=== PATIENT | female | born 1995 | race Caucasian/White ===

== ENCOUNTER 2019-11-27 01:52 | Inpatient (IN) | payer OTHER ==
[~2019-11-27] VITALS: Ht 160 cm; Wt 89.0 kg
[~2019-11-27 01:52] MED LIST: BACTRIM DS TAB1 EACH PO; TYLENOL WITH C1 EACH PO
--- NOTE | 2019-11-27 13:07 | PR ---
[facility] [address] [place] [address] Signed Progress Notes IP Datetime Report Generated by VINAY: 11/27/2019 13:07 PROGRESS NOTES: [id number] Impression: Slow Progression of Labor Procedures: Intrauterine Pressure Catheter; Scalp Electrode Plan: Augmentation Informed Consent Obtain: Vaginal Delivery; Risks, Benefits and Alternatives Discussed VITAL SIGNS: [id number] Vital Signs: Reviewed; Within Normal Limits EXAM: [id number] Dilatation: 3.5 Effacement: 90 Station: -2 Uterine Contractions: q 1 to 7 min MEMBRANES: [id number] Membrane Status: Intact Comments: Really no progress. Will begin pit augment as contractions are inadequate at this time and no cervical change. Fetus A: [id number] FHR Baseline: 140 Variability: Moderate 6-25bpm Accelerations: 15X15 Decelerations: None FHR Category: Category I Presentation: Vertex Comments on Fetus A: No evidence of metabolic acidosis Fetus B: [id number] Signing Physician: Kristin Cueto MD Copies: ~ *Electronically Signed* 11/27/19 1307 KRISTIN CUETO MD PATIENT NAME: ANTHONY RIVERA PROGRESS NOTE DATE OF : [birth year] PHYSICIAN: KRISTIN CUETO MD RPT #: [id number] REPORT IS CONFIDENTIAL AND NOT TO BE RELEASED WITHOUT AUTHORIZATION
--- NOTE | 2019-11-27 17:35 | PR ---
[facility] [address] [facility] [place], [place] [address] Signed Progress Notes IP Datetime Report Generated by VINAY: 11/27/2019 17:34 PROGRESS NOTES: [id number] Impression: Slow Progression of Labor Procedures: Sterile Vag Exam Plan: Augmentation Other Plans: restart pit Informed Consent Obtain: Vaginal Delivery; Risks, Benefits and Alternatives Discussed VITAL SIGNS: [id number] Vital Signs: Reviewed; Within Normal Limits EXAM: [id number] Dilatation: 7.0 Effacement: 90 Station: -2 Uterine Contractions: q 3 to 6 min MEMBRANES: [id number] Membrane Status: Intact Comments: Progressing slowly. status is improved currently so I feel restarting low dose pitocin is reasonable. Will continue close observation. Fetus A: [id number] FHR Baseline: 140 Variability: Moderate 6-25bpm Accelerations: 15X15 Decelerations: Early; Late FHR Category: Category II Presentation: Vertex Comments on Fetus A: overall reassuring with accels Fetus B: [id number] Signing Physician: Kristin Cueto MD Copies: ~ *Electronically Signed* 11/27/19 1734 KRISTIN CUETO MD PATIENT NAME: ANTHONY RIVERA PROGRESS NOTE DATE OF : 97 PHYSICIAN: KRISTIN CUETO MD RPT #: [id number] REPORT IS CONFIDENTIAL AND NOT TO BE RELEASED WITHOUT AUTHORIZATION
--- NOTE | 2019-11-27 18:33 | PR ---
[facility] [address] [place], [place] [address] Signed Progress Notes IP Datetime Report Generated by VINAY: 11/27/2019 18:33 PROGRESS NOTES: [id number] Impression: Normal progression of labor; Non-reassuring heart rate Procedures: Sterile Vag Exam Plan: Anesthesia consult Other Plans: stop pit, redose epidural Informed Consent Obtain: Vaginal Delivery; Risks, Benefits and Alternatives Discussed VITAL SIGNS: [id number] Vital Signs: Reviewed; Within Normal Limits EXAM: [id number] Dilatation: 8.0 Effacement: 80 Station: -2 Uterine Contractions: q 2 to 5 min MEMBRANES: [id number] Membrane Status: Intact Comments: Slowly progressing but with recurrent decels. Will stop pit augmentation again and allow for recovery but restarting. Pt updated about concerns of tolerance for contractions. Fetus A: [id number] FHR Baseline: 140 Variability: Minimal - Undetectable to <5bpm Accelerations: 15X15 Decelerations: Late FHR Category: Category II Presentation: Vertex Comments on Fetus A: Recent lates with contractions but accel with exam which is reassuring Fetus B: [id number] Signing Physician: Kristin Cueto MD Copies: ~ *Electronically Signed* 11/27/19 1833 KRISTIN CUETO MD PATIENT NAME: ANTHONY RIVERA PROGRESS NOTE DATE OF : 97 PHYSICIAN: KRISTIN CUETO MD RPT #: [id number] REPORT IS CONFIDENTIAL AND NOT TO BE RELEASED WITHOUT AUTHORIZATION
--- NOTE | 2019-11-27 19:14 | PR ---
[facility] [address] [facility] [place], [place] [address] Signed Progress Notes IP Datetime Report Generated by VINAY: 11/27/2019 19:13 PROGRESS NOTES: [id number] Impression: Non-reassuring heart rate Procedures: Sterile Vag Exam Plan: Anesthesia consult Other Plans: pit off, position changes Informed Consent Obtain: Vaginal Delivery; Risks, Benefits and Alternatives Discussed VITAL SIGNS: [id number] Vital Signs: Reviewed; Within Normal Limits EXAM: [id number] Dilatation: 8.0 Effacement: 80 Station: -2 Uterine Contractions: q 2 to 5 min MEMBRANES: [id number] Membrane Status: Intact Comments: Recurrent decels and poor variability which is currently improved. Will restart pitocin to see if baby will tolerate contractions. She is comfortable again after a redose in epidural. Will continue close observation. Fetus A: [id number] FHR Baseline: 140 Variability: Moderate 6-25bpm Accelerations: 10X10 Decelerations: Late FHR Category: Category II Presentation: Vertex Comments on Fetus A: recurrent variables _ poor variability which responded to position changes and D/C pit Fetus B: [id number] Signing Physician: Kristin Cueto MD Copies: ~ *Electronically Signed* 11/27/191912 KRISTIN CUETO MD PATIENT NAME: ANTHONY RIVERA PROGRESS NOTE DATE OF : 97 PHYSICIAN: KRISTIN CUETO MD RPT #: [id number] REPORT IS CONFIDENTIAL AND NOT TO BE RELEASED WITHOUT AUTHORIZATION
--- NOTE | 2019-11-27 20:07 | PR ---
[facility] [address] [facility] [place], [place] [address] Signed Progress Notes IP Datetime Report Generated by VINAY: 11/27/2019 20:07 PROGRESS NOTES: [id number] Impression: Normal progression of labor Procedures: Sterile Vag Exam Plan: Anesthesia consult Other Plans: trial hands and knees Informed Consent Obtain: Vaginal Delivery; Risks, Benefits and Alternatives Discussed VITAL SIGNS: [id number] Vital Signs: Reviewed; Within Normal Limits EXAM: [id number] Dilatation: 9.0 Effacement: 80 Station: -1 Uterine Contractions: q 2 to6 min MEMBRANES: [id number] Membrane Status: Intact Comments: Progressing. Will try different position to see if this will help with further dilation and continue observation of FHTs. Fetus A: [id number] FHR Baseline: 145 Variability: Moderate 6-25bpm Accelerations: 10X10 Decelerations: Late; Variable FHR Category: Category II Presentation: Vertex Comments on Fetus A: variability present though will continue close observation Fetus B: [id number] Signing Physician: Kristin Cueto MD Copies: ~ *Electronically Signed* 11/27/192006 KRISTIN CUETO MD PATIENT NAME: ANTHONY RIVERA PROGRESS NOTE DATE OF : 97 PHYSICIAN: KRISTIN CUETO MD RPT #: [id number] REPORT IS CONFIDENTIAL AND NOT TO BE RELEASED WITHOUT AUTHORIZATION
--- NOTE | 2019-11-28 08:42 | PR ---
[facility] [address] [facility] [place], [place] [address] Signed PP Progress Notes Datetime Report Generated by VINAY: 11/28/2019 08:42 SUBJECTIVE: [id number] Pain: Within normal limits Vital Signs: [id number] Vital Signs: Reviewed; Within Normal Limits EXAM: [id number] Cardiovascular: Not Done Respiratory: Not Done Abdomen/Uterus: Abnormal Lochia: Normal Vulva/Perineum: Not Done Breasts: Not Done CVA Tenderness: Not Done Extremities: Normal Incision: Not Applicable Progress: Normal Exam Comments: Fundus firm, NT @ U+1. H/H 10.7/33.7, WBC 23.4, plat 396k IMPRESSION/PLAN/PROCEDURES: [id number] Impression: Normal progression Plan: Continue present management Procedures: Rhogam Progress Notes: Doing well. Signing Physician: Kristin Cueto MD Copies: ~ *Electronically Signed* 11/28/19 0842 KRISTIN CUETO MD PATIENT NAME: ANTHONY RIVERA PROGRESS NOTE DATE OF : 97 PHYSICIAN: KRISTIN CUETO MD RPT #: [id number] REPORT IS CONFIDENTIAL AND NOT TO BE RELEASED WITHOUT AUTHORIZATION
--- NOTE | 2019-11-29 09:39 | PR ---
[facility] [address] [facility] [place], [place] [address] Signed PP Progress Notes Datetime Report Generated by VINAY: 11/29/2019 09:39 SUBJECTIVE: [id number] Pain: Within normal limits Vital Signs: [id number] Vital Signs: Reviewed; Within Normal Limits EXAM: [id number] Cardiovascular: Not Done Respiratory: Not Done Abdomen/Uterus: Abnormal Lochia: Normal Vulva/Perineum: Not Done Breasts: Not Done CVA Tenderness: Not Done Extremities: Normal Incision: Not Applicable Progress: Normal Exam Comments: Fundus firm, NT @ U-1. IMPRESSION/PLAN/PROCEDURES: [id number] Impression: Normal progression Plan: Discharge Procedures: Rhogam Progress Notes: Doing well. She is ready for D/C. Signing Physician: Kristin Cueto MD Copies: ~ *Electronically Signed* 11/29/19 0939 KRISTIN CUETO MD PATIENT NAME: ANTHONY RIVERA PROGRESS NOTE DATE OF : 97 PHYSICIAN: KRISTIN CUETO MD RPT #: [id number] REPORT IS CONFIDENTIAL AND NOT TO BE RELEASED WITHOUT AUTHORIZATION
== END 2019-11-29 11:48 | disposition home or self-care (01) | DRG 768 ==
LOC: FBCO 01:52 → FBC 05:57
PROVIDERS: ADMIT Obstetrics & Gynecology
PROC: 10E0XZZ Delivery of Products of Conception, External Approach (ICD-10-PCS; principal; 2019-11-27)
PROC: 0UQG0ZZ Repair Vagina, Open Approach (ICD-10-PCS; 2019-11-27)
PROC: 10H07YZ Insertion of Other Device into Products of Conception, Via Natural or Artificial Opening (ICD-10-PCS; 2019-11-27)
PROC: 10907ZC Drainage of Amniotic Fluid, Therapeutic from Products of Conception, Via Natural or Artificial Opening (ICD-10-PCS; 2019-11-27)
PROC: 00HU33Z Insertion of Infusion Device into Spinal Canal, Percutaneous Approach (ICD-10-PCS; 2019-11-27)
PROC: 3E0R3BZ Introduction of Anesthetic Agent into Spinal Canal, Percutaneous Approach (ICD-10-PCS; 2019-11-27)
DX: O71.4 Obstetric high vaginal laceration alone (principal); Z37.0 Single live birth; Z3A.39 39 weeks gestation of pregnancy; O76 Abnormality in fetal heart rate and rhythm complicating labor and delivery; O99.214 Obesity complicating childbirth; O77.0 Labor and delivery complicated by meconium in amniotic fluid; E66.9 Obesity, unspecified; Z87.891 Personal history of nicotine dependence; Z88.0 Allergy status to penicillin; Z88.8 Allergy status to other drugs, medicaments and biological substances
CPT/HCPCS: 01960; 36415; 59025; 82803; 83030; 85027; 86850; 86900; 86901; A9270; J2590; J2790; J2795; J7121

== ENCOUNTER 2021-12-19 05:36 | Inpatient (IN) | payer OTHER ==
[~2021-12-19] VITALS: Ht 162.6 cm; Wt 91.6 kg
--- NOTE | 2021-12-19 07:58 | PR ---
[facility] [address] [facility] [place], [place] [address] Signed Progress Notes IP Datetime Report Generated by CPN: 12/19/2021 07:57 PROGRESS NOTES: [id number] Impression: Normal Progression of Labor Procedures: Artificial ROM; Sterile Vag Exam Plan: Continue Present Management VITAL SIGNS: [id number] Vital Signs: Reviewed; Within Normal Limits EXAM: [id number] Dilatation: 4.0 Effacement: 75 Station: -2 Contractions: q 4 to 7 min MEMBRANES: [id number] Comments: Still comfortable but expect contractions to increase with AROM. Will continue. FETUS A: [id number] FHR Baseline: 140 Variability: Moderate 6-25bpm Accelerations: 15X15 Decelerations: None FHR Category: Category I Presentation: Vertex Comments on Fetus A: No evidence of metabolic acidosis FETUS B: [id number] Signing Physician: Kristin Cueto MD Copies: ~ *Electronically Signed* 12/19/21 0757 KRISTIN CUETO MD PATIENT NAME: ANTHONY RIVERA PROGRESS NOTE DATE OF : 97 PHYSICIAN: KRISTIN CUETO MD RPT #: [id number] REPORT IS CONFIDENTIAL AND NOT TO BE RELEASED WITHOUT AUTHORIZATION
--- NOTE | 2021-12-20 07:52 | PR ---
[facility] [address] [facility] [place], [place] [address] Signed PP Progress Notes Datetime Report Generated by CPBrayan: 12/20/2021 07:52 SUBJECTIVE: [id number] Pain: Within Normal Limits Vital Signs: R1677025 Vital Signs: Reviewed; Within Normal Limits Cardiovascular: Not Done Respiratory: Not Done Abdomen/Uterus: Abnormal Lochia: Normal Vulva/Perineum: Not Done Breasts: Not Done CVA Tenderness: Not Done Extremities: Normal Incision: Not Applicable Progress: Normal Exam Comments: Fundus firm, NT @ U-2 H/H 11.3/34.8, WBC 17.7, plat 429k IMPRESSION/PLAN/PROCEDURES: [id number] Impression: Normal Progression Plan: Discharge Procedures: Rhogam Progress Notes: Doing well. She desires discharge today. Signing Physician: Kristin Cueto MD Copies: ~ *Electronically Signed* 12/20/21 0752 KRISTIN CUETO MD PATIENT NAME: ANTHONY RIVERA PROGRESS NOTE DATE OF : 97 PHYSICIAN: KRISTIN CUETO MD RPT #: [id number] REPORT IS CONFIDENTIAL AND NOT TO BE RELEASED WITHOUT AUTHORIZATION
== END 2021-12-20 15:53 | disposition home or self-care (01) | DRG 807 ==
LOC: FBCO 05:36 → FBC 07:00
PROVIDERS: ADMIT Obstetrics & Gynecology; ATTEND Obstetrics & Gynecology
PROC: 10E0XZZ Delivery of Products of Conception, External Approach (ICD-10-PCS; principal; 2021-12-19)
PROC: 10907ZC Drainage of Amniotic Fluid, Therapeutic from Products of Conception, Via Natural or Artificial Opening (ICD-10-PCS; 2021-12-19)
PROC: 0HQ9XZZ Repair Perineum Skin, External Approach (ICD-10-PCS; 2021-12-19)
PROC: 00HU33Z Insertion of Infusion Device into Spinal Canal, Percutaneous Approach (ICD-10-PCS; 2021-12-19)
PROC: 3E0R3BZ Introduction of Anesthetic Agent into Spinal Canal, Percutaneous Approach (ICD-10-PCS; 2021-12-19)
PROC: 3E0234Z Introduction of Serum, Toxoid and Vaccine into Muscle, Percutaneous Approach (ICD-10-PCS; 2021-12-19)
DX: O70.0 First degree perineal laceration during delivery (principal); Z37.0 Single live birth; Z3A.38 38 weeks gestation of pregnancy; O26.893 Other specified pregnancy related conditions, third trimester; Z67.11 Type A blood, Rh negative; Z87.891 Personal history of nicotine dependence; Z20.822 Contact with and (suspected) exposure to COVID-19
CPT/HCPCS: 36415; 83030; 85027; 86850; 86900; 86901; 87502; A9270; J2590; J2790; J2795; J3010; J7121; U0003

== ENCOUNTER 2023-05-13 22:08 | Observation (INO) | payer OTHER ==
[~2023-05-13] VITALS: Ht 152.4 cm; Wt 94.4 kg
[2023-05-13 22:35] LABS: BASOPHILS 0.8 % (0-2); EOSINOPHILS 0.2 % (0-6); HEMATOCRIT 38.6 % (35.0-50.0); HEMOGLOBIN 12.6 g/dL (12.0-18.0); LYMPHOCYTES 17.9 % (24-44); MCH 27.6 (27-36); MCHC 32.7 g/dl (30-36); MCV 84.4 fl (81-99); MONOCYTES 6.7 % (0-12); NEUTROPHILS 74.4 % (39-80); PLATELET COUNT 422 K/uL (140-440); RBC 4.58 M/ul (4.3-5.7); RDW 14.3 (10.5-15.0)
[2023-05-13 22:49] LABS: ALBUMIN 4.1 g/dL (3.4-5.0); ALBUMIN/GLOBULIN RATIO 1.03 (1.1-2.4); ANION GAP 10.2 (7-21); BILIRUBIN, TOTAL 0.8 ng/dL (0.2-1.0); CREATININE, SERUM 0.9 mg/dL (0.55-1.02); POTASSIUM 3.2 mmol/L (3.5-5.1); PROTEIN, TOTAL 8.1 g/dL (6.4-8.2)
[2023-05-14] VITALS (8 sets, daily range): BP systolic 104–128; BP diastolic 49–75
[2023-05-14 00:24] LABS: BILIRUBIN, URINE NEGATIVE (negative); BLOOD/HGB, URINE TRACE-I (Negative); KETONE, URINE SMALL (Negative); LEUK ESTERASE, URINE TRACE (negative); NITRITE, URINE NEGATIVE (negative); PH, URINE 6.5 (5-7)
[2023-05-14 00:33] LABS: EPITHELIAL CELLS, URINE SQUAMOUS 3+ /lpf (0-1+); RED BLOOD CELLS, URINE 0-1 /hpf (0-5); REFLEX CULTURE, URINE No (No); WHITE BLOOD CELLS, URINE 0-1 /HPF (0-5)
--- NOTE | 2023-05-14 01:03 | NUR ---
pt ARRIVED TO [facility] FLOOR, ORIENTED TO ROOM. VSS, CALL LIGHT IN REACH. pt CURRENTLY DENIES PAIN. pt NPO FOR SCHEDULED APPY. CALL LIGHT IN REACH. SATYA AT BEDSIDE, PREPARING TO GO HOME FOR THE EVENING. REFINERY PIPELINE OPERATORKVNG TADEO COMPLETING ADMISSION.
--- NOTE | 2023-05-14 01:53 | NUR ---
0100 - ADMITTED TO ROOM 108 FROM ED, VIA STRETCHER, AMBULATED FROM HALLWAY TO BED, ALERT AND ORIENTED, COOPERATIVE WITH ADMIT ASSESSMENTS AND QUESTIONS, DENIES C/O PAIN OR N/V AT THIS TIME, COMPLETED ER FLAGYL. DENIES S/E TO ABX, IVF INFUSING. ORIENTED TO ROOM, AWARE OF NPO STATUS, INSTRUCTIONS ON ORAL SWABS AND PRE-POST OP EXPECTATIONS, QUESTIONS ANSWERED. COOPERATIVE, RECEPTIVE. SWABS AND CALL LIGHT AT HANDS REACH.
--- NOTE | 2023-05-14 02:46 | NUR ---
SPOKE TO TELEPHARMACY REGARDING CONFLICT NOTED W/ ANCEF ABX. PER TELEPHARMACY OKAY TO DILEEP W/ SCHEDULED ADMINISTRATION, CONFLICT D/T ADVERSE REACTION ON PENICILLINS- MONITOR FOR CROSS SENSITIVITY W/ ANCEF.
[2023-05-14 05:35] LABS: BASOPHILS 0.4 % (0-2); EOSINOPHILS 0.4 % (0-6); HEMATOCRIT 33.8 % (35.0-50.0); LYMPHOCYTES 21.4 % (24-44); MCH 27.8 (27-36); MCHC 32.6 g/dl (30-36); MCV 85.4 fl (81-99); MONOCYTES 7.6 % (0-12); NEUTROPHILS 70.2 % (39-80); PLATELET COUNT 375 K/uL (140-440); RBC 3.96 M/ul (4.3-5.7); RDW 14.3 (10.5-15.0)
[2023-05-14 05:48] LABS: ALBUMIN 3.3 g/dL (3.4-5.0); ALBUMIN/GLOBULIN RATIO 0.97 (1.1-2.4); ANION GAP 9.3 (7-21); BILIRUBIN, TOTAL 0.9 ng/dL (0.2-1.0); BUN/CREATININE RATIO 10.46 (6.0-28.6); CALCIUM 8.7 mg/dL (8.5-10.1); CREATININE, SERUM 0.86 mg/dL (0.55-1.02); POTASSIUM 3.3 mmol/L (3.5-5.1); PROTEIN, TOTAL 6.7 g/dL (6.4-8.2)
--- NOTE | 2023-05-14 05:49 | NUR ---
PT AWAKE, ROOM AIR, DENIES C/O N/V OR ABD PAIN. IVF INFUSING, COOP WITH VITALS. UP TO BRP, VOIDED DARK COLORED YELLOW URINE. BACK TO BED. TOLERATED WELL. NPO, ORAL SWABS AT HANDS REACH
--- NOTE | 2023-05-14 07:22 | NUR ---
VERBAL REPORT RECEIVED FROM KVNG CORTEZ. PT RESTING IN BED WITH EYES CLOSED, RESP EVEN AND UNLABORED.
--- NOTE | 2023-05-14 08:19 | NUR ---
UR NOTE: CRITERIA MET FOR OBS STAY FOR ACUTE APPY CT ABD PELVIS SUSPICIOUS OF ACUTE APPY.
--- NOTE | 2023-05-14 08:48 | NUR ---
PT DENIES PAIN OR NAUSEA THIS AM.
--- NOTE | 2023-05-14 10:30 | NUR ---
Spoke with Kamila. She states she currently lives with her spouse and 2 children with her parents in [place]. They live in house, no issues getting in or out of the home. Pt does not use any DME. She does not drive, but family transport her. She does not have a PCP, but is will to have a pcp from [facility]. I will call both to check for availability, Pt denies other needs. She denies financial difficulties as spouse is working. She is a stay at home mom. She plans on dc to home as soon as she is medically cleared.
--- NOTE | 2023-05-14 11:45 | NUR ---
PRE-SURGICAL CHLORHEXADINE CLEANSE PROVIDED, NEW GOWN DONED. PT MENSTRATING, BREIF AND PAD PROVIDED. PT TO BATHROOM WITH STANDBY ASSIST FOR LINES. PT VOIDS AND APPLIES BREIF AND PAD. 150MLS OF ORANGE CONCENTRATED URINE NOTED. PT BACK TO BED. NO REQUESTS AT THIS TIME.
--- NOTE | 2023-05-14 14:38 | NUR ---
PT ADMITTED TO SOME NERVOUSNESS ABOUT SURGERY BUT WAS CONFIDENT IN CARE TO BE RECEIVED. GAVE REASSURANCE. PT CONSENTED TO PRAYER. PRAYED FOR SUCCESSFUL PROCEDURE AND AWARENESS OF DIVINE PRESENCE.
--- NOTE | 2023-05-14 14:58 | NUR ---
PT VOIDS 100MLS OF URINE, RED WITH MENSIS.
--- NOTE | 2023-05-14 15:18 | NUR ---
IV TO SL LOCK WITH 10CC OF NS.
--- NOTE | 2023-05-14 15:22 | NUR ---
PT LEAVES UNIT ON [facility] ESCORTED BY SURGERY STAFF TO OR FOR PROCEDURE.
--- NOTE | 2023-05-14 16:47 | NUR ---
Called [facility]. They request I call [facility] as they do not have any openings. Sent request to [facility] requesting PCP and emailed the chart to Huyen Coffey CHW and Rosemarie Nolasco W requesting a pcp for this pt.
--- NOTE | 2023-05-14 16:48 | NUR ---
05/14/23 1648 Dede Sky 1640-PT ARRIVES TO PACU ON 6 L MASK WITH ORAL AIRWAY IN PLACE. PT UNRESPONSIVE TO PAINFUL/VERBAL STIMULI. WALLACE TORRES AT BEDSIDE FOR REPORT. S 3059-[facility] REMAINS IN PLACE
--- NOTE | 2023-05-14 17:48 | NUR ---
174- PT RETURNS TO MED-SURG, ROOM 8 VIA BED, ESCORTED BY KVNG PARMAR. VS OBTAINED, STABLE. PULSE TACHY AT 112 S/P EPHEDRINDE IN THE OR. CONTINUOUS PULSE OXIMETER IN PLACE. PT DROWSY BUT RESPONDS TO VERBAL CUES AND CAN FOLLOW INSTRUCTIONS BUT THEN GOES BACK TO RESTING WITH EYES CLOSED, RESP EVEN AND UNLABORED. SPOUSE AT BEDSIDE IN ROOM. SCD'S IN PLACE FROM KNEES TO ANKLES ON BLE. HRR, LUNGS CLEAR, ABDOMEN MILDLY DISTENDED AND SWOLLEN. INCISION SITES X3: EPIGASTRIC REGION, AT UMBILICUS AND RLQ. STERI STRIPS IN PLACE OVER EACH SITE. SMALL AMOUNT OF SEROSANGUINEOUS DRAINAGE NOTED AT UMBILICUS AND EPIGASTRIC REGION, PER VERBAL REPORT FROM KVNG PARMAR, THIS DRAINAGE IS UNCHANGED SINCE HER ARRIVAL TO PACU. NO ACTIVE DRAINING AT THIS TIME. 20G IV IN RAC PATENT, LR AT 85 INFUSING. NO REDNESS, SWELLING OR LEAKING NOTED AT SITE. NO REQUESTS AT THIS TIME.
--- NOTE | 2023-05-14 18:46 | NUR ---
PT WAKES TO VOICE. DENIES PAIN OR NAUSEA. WATCHES TV AND VISITS WITH SPOUSE. NO CHANGES TO ABDOMINAL INCISIONS X3. CALL LIGHT IN REACH, NO REQUESTS AT THIS TIME.
--- NOTE | 2023-05-14 19:38 | NUR ---
REPORT RECEIVED FROM KVNG TIAN. pt RESTING IN BED WITH EYES CLOSED. HR 105. SPO2 95% ON RA. NO DISTRESS NOTED. IVF INFUSING ORDERED.
--- NOTE | 2023-05-14 20:07 | NUR ---
pt SLEEPING, AWAKENS TO VOICE. ASSESSMENT COMPLETE. STERI STRIPS IN PLACE, LAP SITES X3, MINIMAL DRIED SANGUINOUS DRAINAGE ON UMBILICUS AND EPIGASTRIC SITES. SBA TO BSC FOR VOID AND BACK TO BED. VS STABLE. CALL LIGHT AND PERSONAL SUPPLIES IN REACH. ICE WATER PROVIDED.
--- NOTE | 2023-05-14 20:08 | OR ---
[facility] [address] [place], [place] [address] Signed DATE OF OPERATION: 05/14/2023 SURGEON: Yared Davis MD PREOPERATIVE DIAGNOSIS: Acute appendicitis. POSTOPERATIVE DIAGNOSES: 1. Acute appendicitis without perforation. 2. Abdominal obesity. PROCEDURE: Laparoscopic appendectomy. ANESTHESIA: General endotracheal, Yared Coronado CRNA and local 10 mL of 0.25% Marcaine with epinephrine. INDICATION: This is a 27-year-old G2 white woman, who presented to the emergency room late last night and evaluated by Dr. Obrien with progressive pain in the lower abdomen. It began at 2:00 a.m. the night before in the upper abdomen. Her white count was elevated to 14.[address] scan of the abdomen confirmed findings consistent with acute appendicitis. Her beta HCG is negative and urinalysis normal. She has been fluid resuscitated, given intravenous antibiotics today and now to undergo appendectomy preferred by a laparoscopic approach. The risk of bleeding, infection, need for other indicated procedures, need for open procedure and so forth all reviewed with her. She understands and wished to proceed. FINDINGS: Indeed she did have acute suppurative appendicitis, but without sign of perforation of well-formed abscess. Appendectomy was performed without problem. The terminal ileum was normal. The liver was normal. The gallbladder appeared to have chronic inflammatory change, but no acute inflammation at this time. Appendectomy was performed without complication and without significant blood loss. DESCRIPTION OF PROCEDURE: The patient was brought to the operating room, given a general endotracheal anesthetic. Preoperative antibiotic Ancef and Flagyl had been given. Sequential compression device Electronically Signed By: YARED DAVIS MD 05/14/232007 PATIENT NAME: ANTHONY RIVERA OPERATIVE REPORT DATE OF : [birth year] REPORT #: [id number] PHYSICIAN: YARED DAVIS MD PCP: NO PRIMARY CARE PHYSICIAN REPORT IS CONFIDENTIAL AND NOT TO BE RELEASED WITHOUT AUTHORIZATION [facility] [address] [place], [place] [address] Signed stockings were used and heparin subcutaneously administered. After satisfactory general endotracheal anesthesia, the abdomen was prepared with a chlorhexidine solution and draped sterilely. An infraumbilical incision was made and using an open Carli cannula technique, pneumoperitoneum was achieved to a level of 14 mmHg of carbon dioxide gas. Intra-abdominal inspection showed no sign of ascites or carcinomatosis. The small bowel loops in the right lower abdomen are rather inflamed. Appendix at that time was not visualized. The liver appeared normal. There appeared to be chronic inflammatory change of the gallbladder. There was no sign of acute inflammation. Under direct visualization, a 12 mm epigastric port was placed and a camera WAS placed to that site. Single hand manipulation of the right lower abdomen allowed for identification of the cecum and the ileum easily identifying a suppurative thickened appendix clearly with appendicitis, but no sign of perforation or actual abscess. The right lower quadrant 5 mm port was placed and with two hand manipulation window created between the appendix and the cecum. Endo-ИРИНА stapling device with vascular load was used to transect the base of the appendix flushed with the cecum. Mobility of the antimesenteric fat pad of trieve from the mesentery of the appendix itself was undertaken and once isolated, an Endo ИРИНА load was applied across this and another load to fully complete the transection. There was no bleeding particularly. The appendix was placed in an endobag, given her abdominal wall obesity and purulent appearance. This was extracted and revealed on the back table and later photographed. Irrigation was undertaken of the right lower quadrant. There was minimal oozing at the staple line and one of the sites and this was easily secured with electrocautery. Excess irrigation fluid was suctioned free. The camera was replaced to the infraumbilical port. Examination of the upper abdomen undertaken allowing for suctioning of excess irrigation fluid. Better visualization of the gallbladder was undertaken showing chronic inflammatory change with no sign of acute inflammation. The epigastric port was removed and it showed a small amount of oozing and on that basis direct application of cautery through the trocar site was used to secure getting good hemostasis. The right lower quadrant trocar was subsequently removed under direct visualization showing no sign of bleeding. The infraumbilical fascial incision was then reapproximated with interrupted 0 Vicryl suture. Additionally, supported by a running 0 PDS suture. Irrigation was undertaken in the wound. 10 mL of 0.25% Marcaine with epinephrine injected locally and skin closed with interrupted 3-0 Vicryl. Steri-Strips were applied. The patient was ultimately extubated and transferred to recovery room in good condition having suffered no complications. Sponge, needle, and instrument counts were reported as correct x3. Electronically Signed By: YARED DAVIS MD 05/14/232007 PATIENT NAME: ANTHONY RIVERA OPERATIVE REPORT DATE OF : [birth year] REPORT #: [id number] PHYSICIAN: YARED DAVIS MD PCP: NO PRIMARY CARE PHYSICIAN REPORT IS CONFIDENTIAL AND NOT TO BE RELEASED WITHOUT AUTHORIZATION [address] [address] Signed MD RAFI De La Cruz/MODL /[id number] cc: Dr. Cb Obrien Copies: ~ Electronically Signed By: YARED DAVIS MD 05/14/23 2008 PATIENT NAME: NICOLEANTHONY SANTOS OPERATIVE REPORT DATE OF : [birth year] REPORT #: [id number] PHYSICIAN: YARED DAVIS MD PCP: NO PRIMARY CARE PHYSICIAN REPORT IS CONFIDENTIAL AND NOT TO BE RELEASED WITHOUT AUTHORIZATION
--- NOTE | 2023-05-14 20:08 | HP ---
[facility] [address], [place] [address] Signed ADMISSION DATE: 05/13/2023 REASON FOR ADMISSION: Probable appendicitis. HISTORY OF PRESENT ILLNESS: This 27-year-old white woman who is and accompanied by her and has two children, ages 3 and 1. She lives in [place], [place]. At 2:30 a.m. more than 24 hours ago, she began having central upper abdominal pain, which was unrelenting. She tried Pepto-Bismol, which was somewhat helpful, but then pain migrated to the lower abdomen, both right and left lower abdomen area. She presented to the emergency room at approximately 10:30 last night where she was evaluated by Dr. Obrien. This included an ultrasound of the abdomen confirming high probability of acute appendicitis. There is no evidence of bowel obstruction, terminal ileitis, or other abnormality. Her white count was elevated to 19.4, and urinalysis was essentially negative. Beta hCG was reported as negative as well. She has an impending menstrual period soon she thinks as well. She was admitted for further evaluation and care. PAST MEDICAL HISTORY: Notable only for childbirth. ALLERGIES: Allergies to penicillin and self-described allergy to Benadryl. PAST SURGICAL HISTORY: She has never had surgery in the past. SOCIAL HISTORY: She does not smoke. She does not work outside the home. REVIEW OF SYSTEMS: Denies any shortness of breath or chest pain. She has had no dysphagia, dysuria, hematemesis or hematuria. PHYSICAL EXAMINATION: GENERAL: Somewhat obese white woman accompanied by her at this time. She does not look systemically toxic. VITAL SIGNS: Temperature at presentation was 98.1, pulse 117, blood pressure 124/79, O2 saturation 99% on room air. Current vital signs show a temperature of 98, pulse 92, Electronically Signed By: YARED DAVIS MD 05/14/232007 PATIENT NAME: ANTHONY RIVERA HISTORY AND PHYSICAL DATE OF : [birth year] REPORT #: [id number] PHYSICIAN: YARED DAVIS MD PCP: NO PRIMARY CARE PHYSICIAN REPORT IS CONFIDENTIAL AND NOT TO BE RELEASED WITHOUT AUTHORIZATION [facility] [address], [place] [address] Signed blood pressure 119/52, O2 saturation on room air is 98%. HEENT: Trachea is midline. Mucous membranes are moist. CHEST: Clear. HEART: Regular. I do not detect a murmur, though the patient describes prior history of having murmur./ ABDOMEN: Somewhat obese. Rovsing sign is positive. There is tenderness in the right lower quadrant. EXTREMITIES: Show no clubbing, cyanosis, or edema. LABORATORY STUDIES: Show an initial white count of 19.4, this morning 14.5; hematocrit of 33.8, previously 38.6; platelets 375,000. Chem profile shows potassium now 3.3, otherwise electrolytes are normal. Liver enzymes are normal. Beta hCG negative. Urinalysis showed a trace of ketones, otherwise normal. Serology negative for Gautam virus. I have reviewed the CT scan in detail and reviewed the report as well. I faintly see what likely is the appendix, which is oriented medially and in the posterior aspect of the cecum. Interpretation of the CT showed findings suspicious for acute uncomplicated appendicitis without sign of bowel obstruction. The appendix is considered dilated within mild adjacent inflammatory stranding. Appendix measuring 12 mm in size. ASSESSMENT: The patient likely has acute non-perforated appendicitis. Discussed the pathophysiology of the problem with the patient and her , they understand. I have recommended an appendectomy. Non-operative approaches are consideration, but less likely would be durably effective and on that basis my recommendation is primarily appendectomy. The laparoscopic approach would be preferred though an open approach may be required. I discussed the risk of bleeding, infection, missed diagnosis, failure of diagnosis and need for other indicated procedures, particularly if appendix is normal. I would still recommend it to be removed and evaluation and treatment of other findings if necessary. They agreed to this. PLAN: We will provide for laparoscopy and laparoscopic appendectomy today. MD RAFI De La Cruz/JOE /[id number] Electronically Signed By: YARED DAVIS MD 05/14/232007 PATIENT NAME: ANTHONY RIVERA HISTORY AND PHYSICAL DATE OF : [birth year] REPORT #: [id number] PHYSICIAN: YARED DAVIS MD PCP: NO PRIMARY CARE PHYSICIAN REPORT IS CONFIDENTIAL AND NOT TO BE RELEASED WITHOUT AUTHORIZATION [facility] [address], [place] [address] Signed cc: Dr. Obrien Copies: ~ Electronically Signed By: YARED DAVIS MD 05/14/232007 PATIENT NAME: ANTHONY RIVERA HISTORY AND PHYSICAL DATE OF : [birth year] REPORT #: [id number] PHYSICIAN: YARED DAVIS MD PCP: NO PRIMARY CARE PHYSICIAN REPORT IS CONFIDENTIAL AND NOT TO BE RELEASED WITHOUT AUTHORIZATION
--- NOTE | 2023-05-14 20:52 | NUR ---
POST OP VS COMPLETE. PT STATES NO PAIN AT THIS TIME. RA, SATS IN THE 90'S. LAP SITES CONTINUE COVERED WITH SS,
--- NOTE | 2023-05-14 21:03 | NUR ---
POST OP VS COMPLETE. pt RESTING IN BED. CONTINUES TO DENY PAIN. STERI STRIPS INTACT ON LAP SITES X3, NO NEW DRAINAGE. SCHEDULED MEDICATIONS ADMINISTERED. CALL LIGHT IN REACH.
--- NOTE | 2023-05-15 00:15 | NUR ---
CHECKED ON pt. RESTING IN BED AWAKE WATCHING TV. ICE WATER REFILLED. NO ADDITIONAL REQUESTS.
[2023-05-15 02:40] VITALS: BP 123/63
--- NOTE | 2023-05-15 02:50 | NUR ---
CALL LIGHT ANSWERED. IV PUMP ALARMING DISTAL OCCLUSION. SITE ASSESSED, IVF INFUSING WNL ORDERED. VSS. ASSESSMENT COMPLETE. pt CONTINUES TO DENY PAIN. UMBILICUS LAP SITE DRAINING SMALL AMT SANGUINOUS DRAINAGE THROUGH TO GOWN, DRESSING REINFORCED WITH NON-ADHERANT GAUZE. NEW GOWN APPLIED. SBA TO RESTROOM FOR VOID AND BACK TO BED. CALL LIGHT IN REACH.
[2023-05-15 06:21] VITALS: BP 116/55
--- NOTE | 2023-05-15 06:30 | NUR ---
STUDENT NURSE NOTE PT. CALLED REQUESTED ASSISTANCE WITH IV PUMP AND TO ORDER BREAKFAST. IV PUMP HAD DISTAL OCCLUSION, IV SITE OBSERVED AND INSPECTED FOR SIGNS OF INFILTRATION AND PHLEBITIS. NO SIGNS OBSERVED. IV FLUIDS RE-STARTED, PT. PRIMARY NURSE NOTIFIED. PT ASSISTED WITH BREAKFAST ORDER. CALL LIGHT WITHIN REACH. NO OTHER NEEDS AT THIS TIME.
--- NOTE | 2023-05-15 06:31 | NUR ---
pt SLEEPING, AWAKENS TO VOICE. IV SITE ASSESSED, IV ANTIBIOTIC INFUSING WNL. pt DENIES PAIN. SBA TO RESTROOM FOR VOID AND BACK TO BED. CALL LIGHT IN REACH. BREAKFAST MENU AND PHONE PROVIDED TO PATIENT.
--- NOTE | 2023-05-15 07:10 | NUR ---
VERBAL REPORT RECEIVED FROM [facility] CARRASCO AND [facility] VILLEGAS. PT AWAKE AND ALERT, WATCHES TV, REPORTS ABDOMINAL PAIN 1/10, TOLERABLE AT THIS TIME AND DENIES NAUSEA. NO REQUESTS.
[2023-05-15] MEDS ORDERED: IBUPROFEN600 MG PO (09:09)
[2023-05-15] MEDS ORDERED: HYDROCODON-ACE1 EA10 PO (09:09)
[2023-05-15] MEDS ORDERED: ACETAMINOPHEN500 MG PO (09:10)
--- NOTE | 2023-05-15 09:25 | NUR ---
PT EATS 100% OF BREAKFAST, TOLERATES THIS WELL, DENIES NAUSEA. ORAL PAIN MEDICATION RECIEVED, SEE eMAR. PT WATCHES TV, SPOUSE AND YOUNG DAUGHTER AT BEDSIDE. FLAGYL INFUSING VIA IV. NO REQUESTS AT THIS TIME.
--- NOTE | 2023-05-15 09:32 | NUR ---
PT UP TO BATHROOM, VOIDS 500MLS OF URINE. PT AMBULATES BACK TO BED.
--- NOTE | 2023-05-15 10:08 | NUR ---
DISCUSSED DISCHARGE INSTRUCTIONS WITH PT AND SPOUSE, BOTH VERBALIZE UNDERSTANDING.
--- NOTE | 2023-05-15 10:42 | NUR ---
IV IN RAC REMOVED, TIP INTACT. GAUZE AND TAPE DRESSING APPLIED TO SITE. VSS. PT DENIES NAUSEA OR PAIN. PT DRESSES SELF. PT ESCORTED OFF UNIT IN WHEEL CHAIR PRIVATE CAR DRIVEN BY SPOUSE.
--- NOTE | 2023-05-16 15:59 | PATH ---
[facility] [place] [facility] [address], [place] [address] Signed SPECIMEN(S): A APPENDIX SPECIMEN SOURCE: A. APPENDIX CLINICAL HISTORY: Appendicitis. FINAL PATHOLOGIC DIAGNOSIS: Appendix, appendectomy: - Acute suppurative appendicitis, periappendicitis, and serositis. - Extensive mucosal necrosis. JVR:belén MICROSCOPIC EXAMINATION: Histologic sections of all submitted blocks are examined by light microscopy. These findings, together with the gross examination, support the pathologic diagnosis. GROSS DESCRIPTION: The specimen, labeled and designated "sherin Rivera," is received in formalin and consists of Specimen: Appendix with mesoappendix. Dimensions: 6.0 x 0.8 cm. Serosa: Catharine-copeland, smooth and partially covered with a yellow-copeland, adherent, cloudy, plaque-like material. Defect: Not grossly identified. Inking: Staple line is inked black. Mucosa: Catharine-red. Fecalith: Not grossly identified. Additional: None. Nurse Staff Industrial sections are submitted in (A1). JS (under the direct supervision of a pathologist) The Gross Description was prepared using a voice recognition system. The report was reviewed for accuracy; however, sound-alike word errors, addition and/or deletions may occur. If there is any question about this report, please contact Client Services. PERFORMING LABORATORY: Technical component was performed by [facility], [address] [place] [id number] (CLIA# [id number]). Professional interpretation was PATIENT NAME: ANTHONY RIVERA PATHOLOGY DATE OF : [birth year] REPORT #: [id number] PHYSICIAN: [facility] PCP: NO PRIMARY CARE PHYSICIAN REPORT IS CONFIDENTIAL AND NOT TO BE RELEASED WITHOUT AUTHORIZATION [address] [place], [place] [address] Signed performed by [facility] [address] [address] (CLIA#: [id number]). Diagnostician: Bashir Travis MD Pathologist Electronically Signed 05/16/2023 Copies: ~ PATIENT NAME: ANTHONY RIVERA PATHOLOGY DATE OF : [birth year] REPORT #: [id number] PHYSICIAN: [facility] PCP: NO PRIMARY CARE PHYSICIAN REPORT IS CONFIDENTIAL AND NOT TO BE RELEASED WITHOUT AUTHORIZATION
== END 2023-05-15 10:44 | disposition home or self-care (01) ==
LOC: ED 22:08 → MS 22:11
PROVIDERS: Internal Medicine; ADMIT Surgery; ATTEND Surgery
PROC: 0DTJ0ZZ Resection of Appendix, Open Approach (ICD-10-PCS; principal; 2023-05-14 15:00)
DX: K35.80 Unspecified acute appendicitis (principal)
CPT/HCPCS: 36415; 74177; 80053; 81001; 82150; 84703; 85025; C9803; J0330; J0690; J1100; J1644; J1790; J1885; J2250; J2405; J2704; J2765; J3010; J3490; J7121; Q9967; U0002

== ENCOUNTER 2024-09-03 02:45 | Emergency (ER) | payer OTHER ==
[~2024-09-03] VITALS: Ht 152.4 cm; Wt 79.8 kg
[~2024-09-03 02:45] MED LIST changes: +ACETAMINOPHEN500 MG PO; +HYDROCODON-ACE1 EA10 PO; +IBUPROFEN600 MG PO
[2024-09-03 03:58] VITALS: BP 138/89
[2024-09-03] MEDS ORDERED: TRAMADOL HCL 50 MG HOME.PACK PO ONE (04:15)
== END 2024-09-03 03:58 | disposition home or self-care (01) ==
LOC: ED 02:45
DX: S93.602A Unspecified sprain of left foot, initial encounter (principal); W18.09XA Striking against other object with subsequent fall, initial encounter; Z88.0 Allergy status to penicillin; Z88.8 Allergy status to other drugs, medicaments and biological substances; Z79.899 Other long term (current) drug therapy
CPT/HCPCS: 73630; 99283